=== PATIENT | female | born 1945 | race Caucasian/White ===

== ENCOUNTER → 2020-10-19 | Outpatient (CLI) | payer MEDICARE, BC ==
--- NOTE | 2020-10-19 11:33 | Diagnostic Imaging Report ---
INDICATION: Left knee pain AP, oblique and lateral views of left knee reveal mild to moderate narrowing of the medial knee joint compartment with associated marginal spurring. There is mild spurring at the patellofemoral joint as well. No joint effusion is identified. There is no abnormal lytic or sclerotic focus. IMPRESSION: Osteoarthritis involving the medial compartment to greatest extent without acute abnormality detected. Dictated by: Dictated on workstation # [id number]
== END ==
LOC: RAD FS 11:03
PROVIDERS: ATTEND Nurse Practitioner
DX: M17.12 Unilateral primary osteoarthritis, left knee (principal)
CPT/HCPCS: 73562

== ENCOUNTER → 2022-10-21 | Outpatient (CLI) | payer MEDICARE, BC ==
--- NOTE | 2022-10-21 10:02 | Diagnostic Imaging Report ---
INDICATION: Left thumb pain 3 views of left thumb show osteoarthritic changes of the 1st carpometacarpal joint. There is no fracture or dislocation. IMPRESSION: Osteoarthritis. No acute abnormality seen in the thumb. Dictated by: Dictated on workstation # [id number]
== END ==
LOC: RAD FS 09:13
PROVIDERS: ATTEND Nurse Practitioner Family
DX: M19.042 Primary osteoarthritis, left hand (principal)
CPT/HCPCS: 73140